=== PATIENT | male | born 1990 | race Caucasian/White ===

== ENCOUNTER 2021-12-11 19:08 | Emergency (ER) | payer SELFPAY ==
[~2021-12-11] VITALS: Ht 175.3 cm; Wt 89.0 kg
[2021-12-11 19:17] VITALS: BP 147/82
--- NOTE | 2021-12-11 19:30 | ER.PDOC ---
General Chief Complaint: Dyspnea/Respdistress Stated Complaint: SOB Time seen by MD: 19:20 Source: patient Exam Limitations: no limitations History of Present Illness Initial Comments Patient is a 31-year-old male with a past medical history of asthma who comes in requesting a refill on his prescription treatment. Patient states that he usually takes seroflo which is advair - He states he saw another doctor who gave him another prescription that was not there and he actually wanted those medications. Patient states that the only thing that works for him. Patient states that over the past couple of days he has had to use his albuterol rescue inhaler more and just wants his Advair refilled. Patient states he does have some mild shortness of breath with wheezing but does not want any work-up states is made worse with the typical things like dust and allergens and usually the Advair makes it better. Patient declines any treatment just wants the refill on the medication. Past Medical History Medical History: asthma Surgical History: no surgical history Family History Significant Family History: no pertinent family hx Social History Smoking: less than 1 pack/day Alcohol Use: occassionally Drug Use: none Reviewed Nursing Reviewed: Vital Signs, Abn. Noted, Nursing Assessment Constitutional: denies no symptoms reported, denies see HPI, denies chills, denies diaphoresis, denies fever, denies malaise, denies weakness, denies other EENTM: denies no symptoms reported, denies see HPI, denies eye pain, denies blurred vision, denies tearing, denies double vision, denies ear pain, denies ear discharge, denies nose pain, denies nose congestion, denies throat pain, denies throat swelling, denies mouth pain, denies mouth swelling, denies other Respiratory: shortness of breath, wheezing Cardiovascular: denies no symptoms reported, denies see HPI, denies chest pain, denies edema, denies irregular heart rate, denies lightheadedness, denies palpitations, denies syncope, denies other Gastrointestinal: denies no symptoms reported, denies see HPI, denies abdomen distended, denies abdominal pain, denies blood streaked bowels, denies constipated, denies diarrhea, denies difficulty swallowing, denies nausea, denies poor appetite, denies poor fluid intake, denies rectal bleeding, denies vomiting, denies other Genitourinary: denies no symptoms reported, denies see HPI, denies burning, denies dysuria, denies discharge, denies frequency, denies flank pain, denies hematuria, denies incontinence, denies pain, denies urgency, denies other Musculoskeletal: denies no symptoms reported, denies see HPI, denies back pain, denies gout, denies joint pain, denies joint swelling, denies muscle pain, denies muscle stiffness, denies neck pain, denies other Skin: denies no symptoms reported, denies see HPI, denies change in color, denies change in hair/nails, denies dryness, denies lesions, denies lumps, denies rash, denies other Psychiatric/Neurological: denies no symptoms reported, denies see HPI, denies anxiety, denies depressed, denies emotional problems, denies headache, denies numbness, denies paresthesia, denies pre-existing deficit, denies seizure, denies tingling, denies tremors, denies weakness, denies other Endocrine: denies no symptoms reported, denies see HPI, denies excessive sweating, denies flushing, denies intolerance to cold, denies intolerance to heat, denies increased hunger, denies increased thrist, denies increased urine, denies unexplained weight gain, denies unexplaned weight loss, denies other Hematologic/Lymphatic: denies no symptoms reported, denies see HPI, denies anemia, denies blood clots, denies easy bleeding, denies easy bruising, denies swollen glands, denies other Physical Exam General Appearance: alert, no distress EENT: eyes nml, no nystagmus, ENT nml inspection, pharynx nml Neck: nml inspection, non-tender Respiratory: chest non-tender, wheezing (Very mild) Cardiovascular: Normal Peripheral Pulses, Regular Rate, Rhythm, No Edema, No Gallop, No JVD, No Murmur Abdomen: non-tender, no organomegaly Skin: Normal Color, Warm/Dry Extremities: non-tender, nml ROM, no pedal edema NEURO/PSYCH: oriented x 3, CN's nml as tested, motor nml, sensation nml, mood/affect nml Results/Orders Results/Orders Vital Signs Date Time Temp Pulse Resp B/P (MAP) Pulse Ox O2 Delivery O2 Flow Rate FiO2 12/11/21 19:17 98.6 91 20 95 12/11/21 19:17 98.6 91 20 Progress Progress Patient here with wheezing that is very mild requesting Advair refill offered breathing treatment and other work-up patient refused all of this states he just wants a refill. Will comply will write the prescription. Believe patient would benefit from it 1927reassessmentpatient states the same voiced understanding when to follow-up and return to the ER ER DEPARTURE Departure Time of Disposition: 19:29 Disposition: 01 HOME / SELF CARE / HOMELESS Impression: Primary Impression: Asthma Condition: Stable Patient Instructions: Asthma, Adult Referrals: PCP,UNKNOWN (PCP) PRIMARY CARE PROVIDER Additional Instructions: Please take all medications as prescribed. If you have any new persistent or worsening symptoms or concerns please seek medical attention. Please follow-up with your primary care provider within 1 week. Duration or Time Spent with Pa: 15 Justification of Admit/Observ Is this patient coming directl: No *Level of Care/Services Provid: ER Admit Criteria Met: NO Justification Content JUSTIFICATION FOR ADMISSION Instructions 1. Open link in [employer] Browser. [email or web address] 2. Copy and paste data needed to meet the Admit Criteria. 3. Modify and document the needful data to meet the Admit Criteria. Problem Qualifiers Primary Impression: Asthma Asthma severity: mild Asthma persistence: intermittent Asthma complication type: unspecified Qualified Codes: J45.20 - Mild intermittent asthma, uncomplicated WALE MCCORMICK MD Dec 11, 2021 19:30
[2021-12-11 19:35] VITALS: BP 142/76
== END 2021-12-11 19:36 | disposition home or self-care (01) ==
LOC: ER 19:08
DX: J45.20 Mild intermittent asthma, uncomplicated (principal); F10.20 Alcohol dependence, uncomplicated; F17.210 Nicotine dependence, cigarettes, uncomplicated
CPT/HCPCS: 99281